=== PATIENT | male | born 2000 | race Caucasian/White ===

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

== ENCOUNTER 2019-09-10 18:21 | Emergency (ER) | payer OTHER ==
[~2019-09-10] VITALS: Ht 182.9 cm; Wt 84.1 kg
[2019-09-10 18:23] VITALS: TEMP 97.4
[2019-09-10] MEDS ORDERED: ALBUTEROL S0.4 MG/ML PO (18:29)
[2019-09-10 19:12] LABS: BASO # 0.1 (0.0-0.2); BASO % 0.6 % (0.0-2.0); EOS % 0.3 % (0-4.0); GRAN % 70.9 % (42.2-75.2); HEMATOCRIT 51.9 % (36.0-47.0); LYMPH # 3.1 (1.2-3.4); LYMPH % 21.9 % (20.0-51.0); MEAN CELL VOLUME 88 fl (80.0-95.0); MEAN CORPUSCULAR HEMOGLOBIN 31 pg (26.0-32.0); MEAN CORPUSCULAR HGB CONC 36 g/dl (33.0-37.0); MONO # 0.8 (0.1-0.6); MONO % 5.9 % (1.7-9.3); PLATELET COUNT 243 K/mm3 (130-400); RED BLOOD COUNT 5.91 M/mm3 (4.20-5.60); REDCELL DISTRIBUTION WIDTH-CV 11.8 % (11.5-14.5)
[2019-09-10 19:17] LABS: HEMOGLOBIN 18.4 g/dl (12.5-16.1)
[2019-09-10 19:18] LABS: ALBUMIN 5.1 gm/dL (3.5-5.0); BILIRUBIN,TOTAL 0.7 mg/dL (0.0-1.0); CALCIUM 9.4 mg/dL (8.4-10.2); CREATININE, serum 0.98 (0.66-1.25); POTASSIUM 3.5 mmol/L (3.4-5.0); TOTAL PROTEIN 8.7 gm/dL (6.4-8.2)
[2019-09-10 19:55] LABS: ACETAMINOPHEN < 10 ug/mL (10-30); SALICYLATE < 1.0 mg/dL
[2019-09-10 20:42] LABS: TRICYCLIC ANTIDEPRESS URINE NEGATIVE
[2019-09-11 13:00] VITALS: BP 130/90; PULSE 128
== END 2019-09-11 13:30 | disposition home or self-care (01) ==
LOC: COL.ER 18:21
PROVIDERS: Emergency Medicine
DX: R41.82 Altered mental status, unspecified (principal); J45.909 Unspecified asthma, uncomplicated; F31.9 Bipolar disorder, unspecified
CPT/HCPCS: J1630; J2060; J7030